=== PATIENT | male | born 1995 | race American Indian/Alaskan Native ===

== ENCOUNTER 2021-05-02 13:50 | Emergency (ER) | payer SELFPAY ==
--- NOTE | 2021-05-02 14:28 | Emergency Department Report ---
<PER PALM - Last Filed: 05/02/21 15:39> ED Chest Pain HPI - General Chief Complaint: Chest Pain Stated Complaint: CHEST PAIN PUI?: No Time Seen by Provider: 05/02/21 14:11 Source: patient Mode of arrival: Stretcher Limitations: No Limitations - History of Present Illness Initial Comments: Chief complaint irregular heartbeat chest pain shortness of breath Is a 25-year-old male with history of Marfan syndrome status post cardiac valve repair and repair of aortic aneurysm in August of this year. Patient had surgeries performed in [facility] in [facility]. Today, gradual onset of palpitations, chest pressure and shortness of breath at home. He then developed shoulder pain radiating to upper back. He has intermittent "pain in my heart". Pain feels like a balloon being blown up. 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 He is supposed to take lifelong metoprolol. He has been noncompliant with this medcation. He finished a course of colchicine months ago. He moved to [place] in October. He has not established medical care here. I have requested medical records from [facility] where patient obtained surgery in August. MD Complaint: chest pain -: Gradual Onset: during rest Pain Location: substernal, left chest Pain Radiation: LUE, back Severity: mild Quality: dull Consistency: intermittent Improves With: nothing Worsens With: nothing - Related Data Previous Rx's Medication Instructions Recorded Last Taken Type Metoprolol Succinate [Toprol Xl] 25 mg PO DAILY 90 Days #90 05/02/21 Unknown Rx tab.er.24h Allergies Allergy/AdvReac Type Severity Reaction Status Date / Time No Known Allergies Allergy Verified 05/02/21 14:23 Heart Score - HEART Score History: Slightly suspicious EKG: Normal Age: < 45 Risk factors: No known risk factors Troponin: < normal limit HEART Score: 0 - EKG Read Time Time EKG Completed: 14:14 EKG Read Time: 14:14 - Critical Actions Critical Actions: 0-3 pts:0.9-1.7%risk of adverse cardiac event.Candidate for discharge ED Review of Systems Comment: All other systems reviewed and negative Constitutional: denies: chills Respiratory: shortness of breath. denies: cough Cardiovascular: chest pain, palpitations Musculoskeletal: denies: back pain Skin: denies: rash, lesions ED Past Medical Hx - Past Medical History Previous Medical History?: Yes Additional medical history: Marfan syndrome. AAA - Surgical History Past Surgical History?: Yes Additional Surgical History: Cardiac valve repair, thoracic aortic aneurysm repair - Social History Smoking Status: Never Smoker Substance Use Type: None - Medications Home Medications: Home Medications Medication Instructions Recorded Confirmed Last Taken Type Metoprolol Succinate [Toprol Xl] 25 mg PO DAILY 90 Days #90 05/02/21 Unknown Rx tab.er.24h ED Physical Exam - General Limitations: No Limitations General appearance: alert, in no apparent distress - Head Head exam: Present: atraumatic, normocephalic - Eye Eye exam: Present: normal appearance - ENT ENT exam: Present: mucous membranes moist - Neck Neck exam: Present: normal inspection, full ROM - Respiratory Respiratory exam: Present: normal lung sounds bilaterally, other (Sternotomy scar). Absent: respiratory distress, wheezes, rales, rhonchi - Cardiovascular Cardiovascular Exam: Present: regular rate, normal rhythm, normal heart sounds. Absent: systolic murmur, diastolic murmur, rubs, gallop - GI/Abdominal GI/Abdominal exam: Present: soft, normal bowel sounds. Absent: distended, tenderness, guarding, rebound - Rectal Rectal exam: Present: deferred - Extremities Exam Extremities exam: Present: normal inspection - Neurological Exam Neurological exam: Present: alert, oriented X3 - Psychiatric Psychiatric exam: Present: normal affect, normal mood - Skin Skin exam: Present: warm, dry, intact, normal color. Absent: rash ED Medical Decision Making - Lab Data Result diagrams: 05/02/21 14:28 05/02/21 14:28 - EKG Data -: EKG Interpreted by Mn EKG shows normal: sinus rhythm, axis Rate: normal - EKG Data 05/02/21 14:28 EKG obtained 1414 EKG interpreted by az Rate 60 bpm normal sinus rhythm normal axis normal intervals U waves present nonischemic T wave pattern normal MN interval normal QT interval 05/02/21 14:29 - Radiology Data Radiology results: report reviewed - Medical Decision Making This is a 25-year-old male with history of thoracic aortic aneurysm repair and cardiac valve disease who presents with palpitations chest pain. Benign U waves on EKG. Normal amplitude. Upright. Suspect APCs PVCs. Patient will benefit from metoprolol which was prescribed to him. We will obtain CT angiogram to rule out aortic pathology such as aneurysm and dissection I have obtained CT chest angiogram report and consultation documentation from [facility]. My colleague Dr. Palm will determine appropriate disposition. ED Disposition Clinical Impression: Palpitation Disposition: HOME / SELF CARE / HOMELESS Condition: Stable Prescriptions: Metoprolol Succinate [Toprol Xl] 25 mg PO DAILY 90 Days #90 tab.er.24h Referrals: MASOUD MANZO MD [Staff Physician] - 3-5 Days <JAZZ PALM - Last Filed: 05/02/21 19:26> ED Review of Systems ROS: Stated complaint: CHEST PAIN Other details as noted in HPI ED Course Vital Signs 05/02/21 05/02/21 05/02/21 14:04 14:24 14:26 Temperature 98.7 F 98.7 F Pulse Rate 78 78 Respiratory 16 16 Rate Blood Pressure Blood Pressure 108/66 108/66 [Right] O2 Sat by Pulse 98 98 98 Oximetry 05/02/21 14:28 Temperature 98.7 F Pulse Rate 78 Respiratory 16 Rate Blood Pressure 108/66 Blood Pressure [Right] O2 Sat by Pulse 98 Oximetry ED Medical Decision Making - Lab Data Result diagrams: 05/02/21 14:28 05/02/21 14:28 - Radiology Data [facility] [address] [place] [address] Cat Scan Report Signed Patient: ANGEL FRIAS MR#: [id number] : 1995 Acct:[id number] Age/Sex: 25 / M ADM Date: 05/02/21 Loc: ED Attending Dr: Ordering Physician: Per Benton MD Date of Service: 05/02/21 Procedure(s): CT angio chest Accession Number(s): [id number] cc: Per Benton MD CTA CHEST, ABDOMEN, AND PELVIS (AORTIC ANEURYSM) INDICATION / CLINICAL INFORMATION: Marfan syndrome. TECHNIQUE: Axial CT images were obtained through the chest, abdomen, and pelvis after injection of Omnipaque 350, 100 cc IV contrast. 3 plane MIP and/or 3D reconstructions were produced. All CT scans at this location are performed using CT dose reduction for ALARA by means of automated exposure control. COMPARISON: None available. FINDINGS: HEART: - Size: Normal. - [place] Coronary Atherosclerosis: None. - Pericardium: No pericardial effusion. THORACIC AORTA: Previous replacement of the aortic valve. 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 A small area of irregularity at the top of the aortic root is favored to be postsurgical change. GREAT VESSELS: No acute abnormality. No significant atherosclerosis. PULMONARY ARTERIES: No pulmonary emboli. CHEST VEINS: Single SVC of normal caliber as visualized to the right of midline. No significant abnormality. ABDOMINAL AORTA: - Dissection: No dissection. - Aneurysm: No aneurysm or pseudoaneurysm. - Atherosclerosis: No significant atherosclerosis. CELIAC TRUNK: No significant abnormality. SUPERIOR MESENTERIC ARTERY: No significant abnormality. RENAL ARTERIES: No significant abnormality. INFERIOR MESENTERIC ARTERY: No significant abnormality. RIGHT ILIAC ARTERIES: No acute abnormality. No significant atherosclerosis. LEFT ILIAC ARTERIES: No acute abnormality. No significant atherosclerosis. RIGHT FEMORAL ARTERIES: No acute abnormality. No significant atherosclerosis. LEFT FEMORAL ARTERIES: No acute abnormality. No significant atherosclerosis. ABDOMINOPELVIC VEINS: Single IVC of normal caliber to the right of midline. No significant abnormality. ADDITIONAL CHEST FINDINGS: No significant additional findings. ADDITIONAL ABDOMINOPELVIC FINDINGS: Small umbilical hernia containing soft tissue. SKELETAL SYSTEM: No significant abnormality. IMPRESSION: 1. Previous replacement the aortic valve. 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 A small postsurgical plication defect is favored over focal dissection. 2. The abdominal aorta and its branches are unremarkable in appearance. Signer Name: Miguel Ángel Escobedo MD Signed: 05/02/2021 7:06 PM Workstation Name: [id number] Transcribed By: ES Dictated By: Miguel Ángel Escobedo MD Electronically Authenticated By: Miguel Ángel Escobedo MD Signed Date/Time: 05/02/21 190 - Medical Decision Making Able to review the patient's CT reports from [place]. Post surgery the patient's aortic root at a maximum diameter of 3.4 cm. 3.8 cm found today is within acceptable range. Did not appear to be any leak or new aneurysm or dissection present. Patient is asymptomatic at this time and patient will be discharged. Patient likely has PVCs since he is noncompliant with his metoprolol. Patient be discharged home with follow-up with cardiology. Critical care attestation.: If time is entered above; I have spent that time in minutes in the direct care of this critically ill patient, excluding procedure time. ED Disposition Is pt being admited?: No Does the pt Need Aspirin: No Time of Disposition: 19:26
[2021-05-02 14:50] LABS: Mean Corpuscular HGB Conc 31 % (32-34); Mean Corpuscular Volume 88 fl (84-94); Platelet Count 158 K/mm3 (140-440); Red Blood Count 5.04 M/mm3 (3.65-5.03); Red Cell Distribution Width 13.9 % (13.2-15.2)
[2021-05-02 14:51] LABS: Hematocrit 44.3 % (35.5-45.6); Hemoglobin 13.7 gm/dl (11.8-15.2)
[2021-05-02 15:04] LABS: BUN/Creatinine Ratio 10; Blood Urea Nitrogen 10 mg/dL (9-20); Hemolysis Index 12
[2021-05-02 15:43] LABS: Calcium 9.4 mg/dL (8.4-10.2)
[2021-05-02 16:06] LABS: Total Cells Counted 100
[2021-05-02 16:07] LABS: Giant Platelets Few; Platelet Estimate Consistent w Auto; RBC Morphology Normal
--- NOTE | 2021-05-02 19:10 | Cat Scan Report ---
CTA CHEST, ABDOMEN, AND PELVIS (AORTIC ANEURYSM) INDICATION / CLINICAL INFORMATION: Marfan syndrome. TECHNIQUE: Axial CT images were obtained through the chest, abdomen, and pelvis after injection of Om nipaque 350, 100 cc IV contrast. 3 plane MIP and/or 3D reconstructions were produced. All CT scans at this location are performed using CT dose reduction for ALARA by means of automated exposure control . COMPARISON: None available. FINDINGS: HEART: - Size: Normal. - [place] Coronary Atherosclerosis: None. - Pericardium: No pericardial effusion. THORACIC AORTA: Previous replacement of the aortic valve. The aortic root is dilated with a maximal diameter of 3.8 c m. A small area of irregularity at the top of the aortic root is favored to be postsurgical change. GREAT VESSELS: No acute abnormality. No significant atherosclerosis. PULMONARY ARTERIES: No pulmonary emboli. CHEST VEINS: Single SVC of normal caliber as visualized to the right of midline. No significant abnor mality. ABDOMINAL AORTA: - Dissection: No dissection. - Aneurysm: No aneurysm or pseudoaneurysm. - Atherosclerosis: No significant atherosclerosis. CELIAC TRUNK: No significant abnormality. SUPERIOR MESENTERIC ARTERY: No significant abnormality. RENAL ARTERIES: No significant abnormality. INFERIOR MESENTERIC ARTERY: No significant abnormality. RIGHT ILIAC ARTERIES: No acute abnormality. No significant atherosclerosis. LEFT ILIAC ARTERIES: No acute abnormality. No significant atherosclerosis. RIGHT FEMORAL ARTERIES: No acute abnormality. No significant atherosclerosis. LEFT FEMORAL ARTERIES: No acute abnormality. No significant atherosclerosis. ABDOMINOPELVIC VEINS: Single IVC of normal caliber to the right of midline. No significant abnormalit y. ADDITIONAL CHEST FINDINGS: No significant additional findings. ADDITIONAL ABDOMINOPELVIC FINDINGS: Small umbilical hernia containing soft tissue. SKELETAL SYSTEM: No significant abnormality. IMPRESSION: 1. Previous replacement the aortic valve. The aortic root is dilated with a maximal diameter of 3.8 c m. A small postsurgical plication defect is favored over focal dissection. 2. The abdominal aorta and its branches are unremarkable in appearance. Signer Name: Miguel Ángel Escobedo MD Signed: 05/02/2021 7:06 PM Workstation Name: [id number]
[2021-05-02 20:28] VITALS: BP 122/76
--- NOTE | 2021-05-03 11:02 | Electrocardiograph Report ---
[facility] Test Date: 2021-05-02 Test Time: 14:14:42 Pat Name: ANGEL FRIAS Department: Room: Gender: M [employer]: NURSE : 1995 Requested By: PER FLORES Order Number: [id number] Reading MD: Ethan Raymundo Measurements Intervals Banks Rate: 59 P: 81 IA: 171 QRS: 86 QRSD: 112 T: 71 QT: 434 QTc: 430 Interpretive Statements Sinus rhythm Probable left ventricular hypertrophy ST elev, probable normal early repol pattern No previous ECG available for comparison Electronically Signed On 05-03-2021 11:01:57 EST by Ethan Raymundo
== END 2021-05-02 20:28 | disposition home or self-care (01) ==
LOC: ED 13:50
DX: R00.2 Palpitations (principal); R07.9 Chest pain, unspecified; R06.02 Shortness of breath
CPT/HCPCS: 36415; 71275; 74175; 80048; 82310; 83735; 84484; 85007; 85025; 93005; 99284; Q9967